=== PATIENT | female | born 1960 | race Two or more races ===

== ENCOUNTER 2020-10-14 12:46 | Emergency (ER) | payer OTHER ==
[~2020-10-14] VITALS: Ht 165.1 cm; Wt 65.8 kg
[2020-10-14] MEDS ORDERED: IBUPROFEN 600 MG TAB PO ONE ×2 (13:34→13:45)
[2020-10-14 13:46] LABS: Hemoglobin 9.6 g/dL (12.2-16.2); Red Blood Cells 2.49 10^6/uL (4.0-5.20)
[2020-10-14 13:48] LABS: Hematocrit 27.9 % (36.0-46.0); Mean Corpuscular Hemoglobin 38.4 pg (28.0-32.0); Mean Corpuscular Hgb Conc. 34.2 g/dL (32.0-36.0); Mean Corpuscular Volume 112.2 fL (80.0-100.0); Platelet Count (auto) 161 10^3/uL (140-450); Red Cell Distribution Width 18.7 % (11.8-14.3); White Blood Cell 9.7 10^3/uL (4.4-10.8)
[2020-10-14 13:59] LABS: Basophils % (manual) 0 (0.0-2.0); Blast Cells 0; Eosinophils % (manual) 0 (0-7); Myelocytes % 0; Promyelocytes % 0; Reactive Lymphocytes 0
[2020-10-14 14:04] LABS: Albumin 2.6 g/dL (3.4-5.0); BUN/Creatinine Ratio 7.8; Calcium 8.6 mg/dL (8.5-10.1)
[2020-10-14 14:06] LABS: Bilirubin, Total 2.4 mg/dL (0.2-1.0); Total Protein 7.2 g/dL (6.4-8.2)
[2020-10-14 14:08] LABS: Potassium 2.8 mmol/L (3.5-5.1)
[2020-10-14 14:15] LABS: Band Neutrophils % (manual) 15; Lymphocytes % (manual) 7 (10.0-50.0); Metamyelocytes % 1; Monocytes % (manual) 4 (0-12)
[2020-10-14] MEDS ORDERED: POTASSIUM CHL 20 Meq TABLET PO ONE (14:30)
[2020-10-14] MEDS ORDERED: POTASSIUM CHL 20MEQ/100ML 100 ML IV ONE (14:30)
[2020-10-14 14:51] VITALS: BP 120/88
[2020-10-14 15:00] LABS: Urine Bacteria FEW /hpf (None Seen); Urine Blood Negative /uL (Negative); Urine Mucus FEW (None Seen); Urine WBC 2 /hpf (0 - 5)
== END 2020-10-14 18:06 | disposition home or self-care (01) ==
LOC: ER 12:46
DX: E87.6 Hypokalemia (principal); R50.9 Fever, unspecified; E78.5 Hyperlipidemia, unspecified; Z88.0 Allergy status to penicillin; Z88.6 Allergy status to analgesic agent; Z85.07 Personal history of malignant neoplasm of pancreas
CPT/HCPCS: 36415; 71045; 80053; 81001; 85007; 85027; 85049; 96365; 99284; J3480; J7030

== ENCOUNTER 2020-10-16 16:59 | Emergency (ER) | payer OTHER ==
[~2020-10-16] VITALS: Ht 162.6 cm; Wt 65.8 kg
[2020-10-16] MEDS ORDERED: POTASSIUM CHL 20 Meq TABLET PO ONE (18:00)
[2020-10-16] MEDS ORDERED: POTASSIUM CHL 20MEQ/100ML 100 ML IV ONE (18:00)
[2020-10-16 18:29] LABS: Urine Bacteria FEW /hpf (None Seen); Urine Blood Negative /uL (Negative); Urine Specific Gravity 1.005 (1.001-1.035); Urine WBC 3 /hpf (0 - 5)
[2020-10-16 18:44] LABS: Basophils # (auto) 0 10 ^3/uL (0-0.2); Basophils % (auto) 0.3 % (0.0-2.0); Eosinophils # (auto) 0 10 ^3/uL (0-0.8); Eosinophils % (auto) 0.1 % (0.0-7.0); Hematocrit 26.1 % (36.0-46.0); Hemoglobin 8.9 g/dL (12.2-16.2); Mean Corpuscular Hemoglobin 37.6 pg (28.0-32.0); Mean Corpuscular Hgb Conc. 34.1 g/dL (32.0-36.0); Mean Corpuscular Volume 110.3 fL (80.0-100.0); Monocytes # (auto) 0.8 10 ^3/uL (0-1.3); Monocytes % (auto) 8.8 % (0.0-12.0); Neutrophils # (auto) 7.4 10 ^3/uL (1.6-8.6); Neutrophils % (auto) 79.8 % (37.0-80.0); Nucleated Red Blood Cells % 0.1 %; Platelet Count (auto) 192 10^3/uL (140-450); Red Blood Cells 2.37 10^6/uL (4.0-5.20); Red Cell Distribution Width 18.6 % (11.8-14.3); White Blood Cell 9.2 10^3/uL (4.4-10.8)
[2020-10-16 19:00] LABS: Albumin 2.4 g/dL (3.4-5.0); Calcium 8.3 mg/dL (8.5-10.1); Magnesium 1.8 mg/dL (1.6-2.6)
[2020-10-16 19:04] LABS: BUN/Creatinine Ratio 11.1; Bilirubin, Total 3.4 mg/dL (0.2-1.0); Total Protein 6.8 g/dL (6.4-8.2)
[2020-10-16 19:11] LABS: Potassium 2.6 mmol/L (3.5-5.1)
[2020-10-16] MEDS ORDERED: metroNIDAZOLE 500MG/100ML 100 ML IV ONE (21:30)
[2020-10-17 05:00] VITALS: BP 144/86
== END 2020-10-17 06:45 | disposition left against medical advice (07) ==
LOC: ER 16:59
DX: E87.6 Hypokalemia (principal); K83.1 Obstruction of bile duct; Z85.07 Personal history of malignant neoplasm of pancreas; Z88.0 Allergy status to penicillin; Z88.6 Allergy status to analgesic agent; E78.00 Pure hypercholesterolemia, unspecified; Z88.8 Allergy status to other drugs, medicaments and biological substances; Z20.822 Contact with and (suspected) exposure to COVID-19; Z53.29 Procedure and treatment not carried out because of patient's decision for other reasons
CPT/HCPCS: 36415; 71045; 74176; 80053; 81001; 83735; 85025; 85049; 87086; 87426; 93005; 96365; 96366; 96367; 99285; J3480; J3490